=== PATIENT | female | born 1965 | race Caucasian/White ===

== ENCOUNTER 2020-03-23 08:13 | Day surgery (SDC) | payer OTHER ==
[~2020-03-23] VITALS: Ht 160 cm; Wt 93.0 kg
[~2020-03-23 08:13] MED LIST: CYCLOBENZAPRINE10 MG PO; LEVOTHYROXINE100 MCG PO; NEURONTIN300 MG PO; NORCO 5-325 TA1 EACH PO
--- NOTE | 2020-03-23 11:21 | NUR ---
03/23/20 1121 Valentine Rosas 1014 PT ARRIVED IN PACU SLEEPY WITH NO C/O'S. 1025 AWAKE TALKING TO STAFF. ABD SOFT. 1040 DC INSTRUCTIONS GIVEN. ALL QUESTIONS ANSWERED. 1050 LEFT VIA W/C.
--- NOTE | 2020-03-23 12:46 | OR ---
[facility] [address], [place] [address] Signed DATE OF OPERATION: 03/23/2020 SURGEON: Jazlyn Arias MD PREOPERATIVE DIAGNOSIS: Screening. POSTOPERATIVE DIAGNOSES: 1. Minimal internal hemorrhoids. 2. Minimal internal anal skin tags x2. PROCEDURE: Colonoscopy without biopsy. ESTIMATED BLOOD LOSS: None. INDICATIONS: Judy is a 55-year-old female, asked to see me for her initial screening colonoscopy. She has no lower GI complaints. There is no family history of colon cancer or polyps. In the office, I gave her a pamphlet on colonoscopy and we looked at that together along with the risks including, but not limited to gas bloating, crampy abdominal pain, bleeding, perforation requiring surgery, and missed diagnosis. She also understands the need for IV conscious sedation, she had expressed understanding and wished to proceed. DESCRIPTION OF PROCEDURE: Judy was taken into our endoscopy suite and placed in the left lateral decubitus position. She was given a total of 5 mg of Versed and 100 mcg of fentanyl to cover the case. A digital rectal exam was performed and this showed very tiny external hemorrhoidal skin tissue. She had good sphincter tone. There were no masses. The adult colonoscope was introduced and advanced quite readily into the cecum itself. Her prep was quite good. We could easily see the appendiceal orifice and the ileocecal valve. The scope was slowly withdrawn. She had no pathology throughout the entire colon or rectum. Upon retroflexion of scope, she has very tiny internal hemorrhoid columns and two small internal anal skin tags. After this, the gas was suctioned out and the colonoscope removed. Judy tolerated the procedure quite well. RECOMMENDATIONS: Judy can follow up in 10 years for repeat colonoscopy. Electronically Signed By: JAZLYN ARIAS MD 03/23/20 1246 PATIENT NAME: JUDY HARE OPERATIVE REPORT DATE OF : 61 REPORT #: [id number] PHYSICIAN: JAZLYN ARIAS MD PCP: [facility] REPORT IS CONFIDENTIAL AND NOT TO BE RELEASED WITHOUT AUTHORIZATION [address] [address] Signed MD DOUGLAS Brooks/NAOMI /[id number] cc: SHAZIA Bailey MD Copies: [facility] ANDREW L MD ~ Electronically Signed By: JAZLYN ARIAS MD 03/23/20 1246 PATIENT NAME: JUDY HARE OPERATIVE REPORT DATE OF : 61 REPORT #: [id number] PHYSICIAN: JAZLYN ARIAS MD PCP: [facility] PAC REPORT IS CONFIDENTIAL AND NOT TO BE RELEASED WITHOUT AUTHORIZATION
== END 2020-03-23 10:50 | disposition home or self-care (01) ==
LOC: OPS 08:13 → DS 08:13 → OPS 09:30
PROVIDERS: ATTEND Colon & Rectal Surgery
PROC: 0DJD8ZZ Inspection of Lower Intestinal Tract, Via Natural or Artificial Opening Endoscopic (ICD-10-PCS; principal; 2020-03-23 09:30)
DX: Z12.11 Encounter for screening for malignant neoplasm of colon (principal); K64.8 Other hemorrhoids; K64.4 Residual hemorrhoidal skin tags; E78.5 Hyperlipidemia, unspecified; E03.9 Hypothyroidism, unspecified; Z88.8 Allergy status to other drugs, medicaments and biological substances; Z79.899 Other long term (current) drug therapy
CPT/HCPCS: 99153; G0500; J2250; J3010